=== PATIENT | female | born 1990 | race Caucasian/White ===

== ENCOUNTER 2017-12-06 12:40 | Inpatient (IN) | payer OTHER ==
[2017-12-06] MEDS ORDERED: LACTATED RINGER'S 1,000 ML IV (16:00)
[2017-12-06] MEDS: LACTATED RINGER'S 1,000 ML IV ×2 (16:10→20:03)
[2017-12-06] MEDS ORDERED: METHYLERGONOVINE 0.2 MG INJ IM (19:00)
[2017-12-06] MEDS ORDERED: CARBOPROST 250 MCG INJ IM (19:00)
[2017-12-06] MEDS ORDERED: LIDOCAINE 1% (MPF) 30 ML INJ INJ (19:00)
[2017-12-06] MEDS ORDERED: BUTORPHANOL 2 MG INJ IV ×2 (19:00)
[2017-12-06] MEDS: DINOPROSTONE 10 MG VAG SUPP VAG (19:00)
[2017-12-06] MEDS ORDERED: OXYTOCIN 30 UNITS/LR 500 ML IV (19:00)
[2017-12-06] MEDS ORDERED: MISOPROSTOL 200 MCG TAB PR (19:00)
[2017-12-06 20:19] LABS: ADD MAN DIFF? NO
[2017-12-06 20:23] LABS: WHITE BLOOD COUNT 10.1 10^3/ul (4.8-10.8)
[2017-12-06 20:23] LABS: BASOPHILS % 0.3 % (0.0-2.0); EOSINOPHILS % 0.3 % (0.0-7.0); HEMOGLOBIN 11.2 g/dl (12.0-16.0); LYMPHOCYTES # 2.3 10^3/ul (0.8-2.9); LYMPHOCYTES % 22.7 % (15.0-51.0); MEAN CORPUSCULAR HEMOGLOBIN 32.7 pg (29.0-33.0); MEAN CORPUSCULAR HGB CONC 33.9 g/dl (32.0-37.0); MEAN CORPUSCULAR VOLUME 96.5 fl (82.0-101.0); MEAN PLATELET VOLUME 11.7 fl (7.4-10.4); MONOCYTE # 0.4 10^3/ul (0.3-0.9); MONOCYTES % 3.9 % (0.0-11.0); NEUTROPHIL # 7.3 10^3/ul (1.6-7.5); NEUTROPHILS % 72.2 % (39.0-77.0); PLATELET COUNT 303 10^3/UL (140-415); RED BLOOD COUNT 3.42 10^6/ul (4.20-5.40); RED CELL DISTRIBUTION WIDTH 13.4 % (11.5-14.5)
[2017-12-06 20:42] LABS: INR 0.93; PARTIAL THROMBOPLASTIN TIME 30.2 Sec (25.0-35.0); PROTIME 12.5 Sec (11.9-14.9)
[2017-12-06] MEDS: AMPICILLIN 2 GM/NS (PMX) 100 ML IVPB (21:59)
[2017-12-06 22:09] LABS: RAPID PLASMA REAGIN NONREACTIVE (NR)
[2017-12-07] MEDS: AMPICILLIN 1 GM/NS (PMX) 50 ML IVPB ×6 (01:31→20:45)
[2017-12-07] MEDS: LACTATED RINGER'S 1,000 ML IV ×4 (05:21→20:50)
[2017-12-07 08:00] LABS: HEPATITIS B SURFACE ANTIGEN NEGATIVE (NEGATIVE)
[2017-12-07] MEDS ORDERED: OXYTOCIN 30 UNITS/LR 500 ML IV (11:00)
[2017-12-07] MEDS: OXYTOCIN 30 UNITS/LR 500 ML IV (11:40)
[2017-12-07] MEDS ORDERED: FENTAnyl 2MCG/ML-ROPIV 0.2% 100 ML (15:00)
[2017-12-07] MEDS ORDERED: NALOXONE (0.4 MG/ML) INJ IV (20:00)
[2017-12-07] MEDS: DIPHENHYDRAMINE 50 MG INJ IV (20:02)
[2017-12-07] MEDS: ONDANSETRON 4 MG INJ IV (20:04)
[2017-12-07] MEDS: FENTAnyl 2MCG/ML-ROPIV 0.2% 100 ML BAG EPI (20:50)
[2017-12-08] MEDS: LACTATED RINGER'S 1,000 ML IV* ×2 (01:19→16:56)
[2017-12-08] MEDS: OXYTOCIN 30 UNITS/LR 500 ML IV ×2 (01:19→01:21)
[2017-12-08] MEDS ORDERED: CARBOPROST 250 MCG INJ IM (01:30)
[2017-12-08] MEDS ORDERED: OXYTOCIN 30 UNITS/LR 500 ML IV (01:30)
[2017-12-08] MEDS ORDERED: MISOPROSTOL 200 MCG TAB PR (01:30)
[2017-12-08] MEDS ORDERED: METHYLERGONOVINE 0.2 MG INJ IM (01:30)
[2017-12-08] MEDS ORDERED: IBUPROFEN 600 MG TAB PO ×2 (02:30→06:00)
[2017-12-08] MEDS: IBUPROFEN 600 MG TAB PO ×4 (02:38→23:31)
[2017-12-08] MEDS: OXYCODONE/ASPIRIN (4.88/325) TAB PO ×2 (06:29→13:17)
[2017-12-08] MEDS: LANOLIN 7 GM TUBE TOP (15:40)
[2017-12-08] MEDS: BENZOCAINE 20% 56 ML SPRAY TOP (15:40)
[2017-12-09] MEDS: LACTATED RINGER'S 1,000 ML IV* ×2 (01:19→09:19)
[2017-12-09] MEDS: IBUPROFEN 600 MG TAB PO ×2 (05:37→11:49)
[2017-12-09 11:34] LABS: ADD MAN DIFF? NO
[2017-12-09 11:40] LABS: BASOPHILS % 0.2 % (0.0-2.0); EOSINOPHILS # 0.2 10^3/ul (0.0-0.5); EOSINOPHILS % 1.9 % (0.0-7.0); HEMATOCRIT 32.2 % (37.0-47.0); HEMOGLOBIN 10.9 g/dl (12.0-16.0); LYMPHOCYTES # 1.7 10^3/ul (0.8-2.9); LYMPHOCYTES % 18.5 % (15.0-51.0); MEAN CORPUSCULAR HEMOGLOBIN 32.4 pg (29.0-33.0); MEAN CORPUSCULAR HGB CONC 33.9 g/dl (32.0-37.0); MEAN CORPUSCULAR VOLUME 95.8 fl (82.0-101.0); MEAN PLATELET VOLUME 11.8 fl (7.4-10.4); MONOCYTE # 0.5 10^3/ul (0.3-0.9); MONOCYTES % 5.9 % (0.0-11.0); NEUTROPHIL # 6.6 10^3/ul (1.6-7.5); NEUTROPHILS % 72.9 % (39.0-77.0); PLATELET COUNT 295 10^3/UL (140-415); RED BLOOD COUNT 3.36 10^6/ul (4.20-5.40); RED CELL DISTRIBUTION WIDTH 13.2 % (11.5-14.5)
[2017-12-09] MEDS: DIPHTH/TET/ACEL PERTUSS (ADULT) 0.5 ML VIAL IM* (11:43)
[2017-12-10] MEDS ORDERED: DIPHTH/TET/ACEL PERTUSS (ADULT) 0.5 ML VIAL IM* (09:00)
[2017-12-10 12:33] LABS: RUBELLA ANTIBODY - IGG <0.90 index
== END 2017-12-09 18:30 | disposition home or self-care (01) | DRG 775 ==
LOC: OBT 12:40 → L-D 12-07 00:51 → PP1 12-08 14:54 → L-D 18:51 → OBT 19:00 → L-D 18:30
PROC: 10E0XZZ Delivery of Products of Conception, External Approach (ICD-10-PCS; principal; 2017-12-08)
PROC: 0UQGXZZ Repair Vagina, External Approach (ICD-10-PCS; 2017-12-08)
PROC: 3E033VJ Introduction of Other Hormone into Peripheral Vein, Percutaneous Approach (ICD-10-PCS; 2017-12-08)
DX: O71.4 Obstetric high vaginal laceration alone (principal); Z3A.37 37 weeks gestation of pregnancy; Z37.0 Single live birth
CPT/HCPCS: 36415; 62319; 76815; 76818; 85025; 85610; 85730; 86592; 86762; 86850; 86900; 86901; 87340; 90715; 96360; 96361; 99464

== ENCOUNTER 2018-05-18 17:56 | Emergency (ER) | payer OTHER ==
[2018-05-18] MEDS: ACETAMINOPHEN 325 MG TAB PO (18:52)
[2018-05-18 19:11] LABS: ADD MAN DIFF? NO
[2018-05-18 19:13] LABS: WHITE BLOOD COUNT 10.1 10^3/ul (4.8-10.8)
[2018-05-18 19:13] LABS: BASOPHILS % 0.3 % (0.0-2.0); EOSINOPHILS # 0.1 10^3/ul (0.0-0.5); EOSINOPHILS % 0.8 % (0.0-7.0); HEMATOCRIT 35.8 % (37.0-47.0); LYMPHOCYTES # 2.6 10^3/ul (0.8-2.9); LYMPHOCYTES % 25.7 % (15.0-51.0); MEAN CORPUSCULAR HGB CONC 33.5 g/dl (32.0-37.0); MEAN CORPUSCULAR VOLUME 95.5 fl (82.0-101.0); MEAN PLATELET VOLUME 11.4 fl (7.4-10.4); MONOCYTE # 0.6 10^3/ul (0.3-0.9); MONOCYTES % 5.7 % (0.0-11.0); NEUTROPHIL # 6.8 10^3/ul (1.6-7.5); NEUTROPHILS % 67.2 % (39.0-77.0); PLATELET COUNT 351 10^3/UL (140-415); RED BLOOD COUNT 3.75 10^6/ul (4.20-5.40); RED CELL DISTRIBUTION WIDTH 12.7 % (11.5-14.5)
[2018-05-18 19:39] LABS: ADD UMIC YES; UR ASCORBIC ACID 20 mg/dL (NEGATIVE); UR BACTERIA FEW /HPF (NONE SEEN); UR BILIRUBIN (Dip) NEGATIVE (NEGATIVE); UR BLOOD (Dip) NEGATIVE (NEGATIVE); UR CLARITY SLIGHTLY CLOUDY (CLEAR); UR COLOR YELLOW (YELLOW); UR GLUCOSE (Dip) NEGATIVE (NEGATIVE); UR KETONES (Dip) NEGATIVE (NEGATIVE); UR LEUKOCYTE ESTERASE (Dip) TRACE Leu/ul (NEGATIVE); UR MUCUS FEW /HPF (NONE SEEN); UR NITRITE (Dip) NEGATIVE (NEGATIVE); UR RBC 23 /HPF (0-5); UR SPECIFIC GRAVITY (Dip) 1.029 (1.003-1.030); UR SQUAMOUS EPITHELIAL CELL FEW /HPF (FEW); UR TOTAL PROTEIN (Dip) NEGATIVE (NEGATIVE); UR UROBILINOGEN (Dip) NEGATIVE (NEGATIVE); UR WBC 4 /HPF (0-5)
== END 2018-05-18 20:21 | disposition home or self-care (01) ==
LOC: FTE 17:56
DX: O26.891 Other specified pregnancy related conditions, first trimester (principal); R10.2 Pelvic and perineal pain; O99.511 Diseases of the respiratory system complicating pregnancy, first trimester; J45.909 Unspecified asthma, uncomplicated; Z3A.11 11 weeks gestation of pregnancy
CPT/HCPCS: 36415; 76801; 81001; 84702; 85025; 86900; 86901; 99284-25

== ENCOUNTER 2018-05-22 09:45 | Emergency (ER) | payer OTHER ==
[2018-05-22] MEDS: ACETAMINOPHEN 325 MG TAB PO (11:37)
== END 2018-05-22 11:35 | disposition left against medical advice (07) ==
LOC: FTE 09:45
DX: O99.89 Other specified diseases and conditions complicating pregnancy, childbirth and the puerperium (principal); M54.9 Dorsalgia, unspecified; O99.511 Diseases of the respiratory system complicating pregnancy, first trimester; J45.909 Unspecified asthma, uncomplicated; Z04.1 Encounter for examination and observation following transport accident; Z3A.11 11 weeks gestation of pregnancy
CPT/HCPCS: 76801; 99284-25

== ENCOUNTER 2018-11-17 17:45 | Outpatient (CLI) | payer OTHER ==
[2018-11-17] MEDS: LACTATED RINGER'S 1,000 ML IV (18:45)
[2018-11-17 18:57] LABS: ADD MAN DIFF? NO
[2018-11-17 19:00] LABS: WHITE BLOOD COUNT 11.7 10^3/ul (4.8-10.8)
[2018-11-17 19:00] LABS: BASOPHILS % 0.3 % (0.0-2.0); EOSINOPHILS # 0.1 10^3/ul (0.0-0.5); EOSINOPHILS % 0.5 % (0.0-7.0); HEMATOCRIT 34.6 % (37.0-47.0); HEMOGLOBIN 11.4 g/dl (12.0-16.0); LYMPHOCYTES # 2.3 10^3/ul (0.8-2.9); LYMPHOCYTES % 19.5 % (15.0-51.0); MEAN CORPUSCULAR HEMOGLOBIN 31.8 pg (29.0-33.0); MEAN CORPUSCULAR HGB CONC 32.9 g/dl (32.0-37.0); MEAN CORPUSCULAR VOLUME 96.6 fl (82.0-101.0); MONOCYTE # 0.9 10^3/ul (0.3-0.9); MONOCYTES % 7.5 % (0.0-11.0); NEUTROPHIL # 8.3 10^3/ul (1.6-7.5); NEUTROPHILS % 71.4 % (39.0-77.0); PLATELET COUNT 347 10^3/UL (140-415); RED BLOOD COUNT 3.58 10^6/ul (4.20-5.40); RED CELL DISTRIBUTION WIDTH 13.2 % (11.5-14.5)
== END 2018-11-17 21:36 | disposition home or self-care (01) ==
LOC: OBT 17:45 → L-D 17:46 → OBT 21:36
DX: O26.893 Other specified pregnancy related conditions, third trimester (principal); Z3A.36 36 weeks gestation of pregnancy; R10.2 Pelvic and perineal pain
CPT/HCPCS: 36415; 76818; 85025; 85460; 96360; 96361

== ENCOUNTER 2018-11-29 07:19 | Outpatient (CLI) | payer OTHER | END 2018-11-29 09:30 | disposition home or self-care (01) | LOC: OBT 07:19 → L-D 07:19 → OBT 09:30 | DX: O62.9 Abnormality of forces of labor, unspecified (principal); Z3A.38 38 weeks gestation of pregnancy | CPT/HCPCS: 76815; 76818 ==

== ENCOUNTER 2018-12-03 17:03 | Inpatient (IN) | payer OTHER ==
[2018-12-03] MEDS ORDERED: OXYTOCIN 30 UNITS/LR 500 ML IV ×2 (18:00)
[2018-12-03] MEDS ORDERED: METHYLERGONOVINE 0.2 MG INJ IM (18:00)
[2018-12-03] MEDS ORDERED: IBUPROFEN 600 MG TAB PO (18:00)
[2018-12-03] MEDS ORDERED: BUTORPHANOL 2 MG INJ IV (18:00)
[2018-12-03] MEDS ORDERED: LIDOCAINE 1% (MPF) 30 ML INJ INJ (18:00)
[2018-12-03] MEDS ORDERED: MISOPROSTOL 200 MCG TAB PR (18:00)
[2018-12-03] MEDS ORDERED: CARBOPROST 250 MCG INJ IM (18:00)
[2018-12-03 18:38] LABS: ADD MAN DIFF? NO
[2018-12-03 18:43] LABS: WHITE BLOOD COUNT 8.1 10^3/ul (4.8-10.8)
[2018-12-03 18:43] LABS: BASOPHILS % 0.5 % (0.0-2.0); EOSINOPHILS # 0.1 10^3/ul (0.0-0.5); HEMATOCRIT 32.9 % (37.0-47.0); HEMOGLOBIN 10.9 g/dl (12.0-16.0); LYMPHOCYTES # 2.4 10^3/ul (0.8-2.9); MEAN CORPUSCULAR HEMOGLOBIN 31.7 pg (29.0-33.0); MEAN CORPUSCULAR HGB CONC 33.1 g/dl (32.0-37.0); MEAN CORPUSCULAR VOLUME 95.6 fl (82.0-101.0); MONOCYTE # 0.5 10^3/ul (0.3-0.9); MONOCYTES % 6.5 % (0.0-11.0); NEUTROPHIL # 5.1 10^3/ul (1.6-7.5); NEUTROPHILS % 62.3 % (39.0-77.0); PLATELET COUNT 276 10^3/UL (140-415); RED BLOOD COUNT 3.44 10^6/ul (4.20-5.40); RED CELL DISTRIBUTION WIDTH 13.2 % (11.5-14.5)
[2018-12-03] MEDS: AMPICILLIN 2 GM/NS (PMX) 100 ML IV (18:51)
[2018-12-03] MEDS: LACTATED RINGER'S 1,000 ML IV ×2 (18:52→22:11)
[2018-12-03 19:02] LABS: INR 0.86; PROTIME 11.8 Sec (11.9-14.9); PT RATIO 0.9
[2018-12-03 19:03] LABS: PARTIAL THROMBOPLASTIN TIME 28.9 Sec (23.0-35.0)
[2018-12-03 19:42] LABS: HEPATITIS B SURFACE ANTIGEN NEGATIVE (NEGATIVE)
[2018-12-03] MEDS: OXYTOCIN 30 UNITS/LR 500 ML IV (21:06)
[2018-12-03] MEDS: AMPICILLIN 1 GM/NS (PMX) 50 ML IV (22:11)
[2018-12-03] MEDS ORDERED: FENTAnyl 2MCG/ML-ROPIV 0.2% 100 ML (22:15)
[2018-12-03] MEDS ORDERED: NALOXONE (0.4 MG/ML) INJ IV (22:30)
[2018-12-04] MEDS: ONDANSETRON 4 MG INJ IV (00:36)
[2018-12-04] MEDS: AMPICILLIN 1 GM/NS (PMX) 50 ML IV ×5 (02:02→18:00)
[2018-12-04] MEDS: LACTATED RINGER'S 1,000 ML IV ×2 (03:39→17:38)
[2018-12-04] MEDS: FENTAnyl 2MCG/ML-ROPIV 0.2% 100 ML BAG EPI (04:30)
[2018-12-04] MEDS ORDERED: MISOPROSTOL 200 MCG TAB PR (10:00)
[2018-12-04] MEDS ORDERED: BENZOCAINE 20% 56 ML SPRAY TOP (10:00)
[2018-12-04] MEDS ORDERED: OXYTOCIN 30 UNITS/LR 500 ML IV (10:00)
[2018-12-04] MEDS ORDERED: ACETAMINOPHEN 325 MG TAB PO ×2 (10:00→22:29)
[2018-12-04] MEDS ORDERED: CARBOPROST 250 MCG INJ IM (10:00)
[2018-12-04] MEDS ORDERED: METHYLERGONOVINE 0.2 MG INJ IM (10:00)
[2018-12-04] MEDS ORDERED: WITCH HAZEL/GLYCERIN PAD PR (10:00)
[2018-12-04] MEDS ORDERED: MAGNESIUM HYDROXIDE 30ML CUP PO (10:00)
[2018-12-04] MEDS ORDERED: DIBUCAINE 1% 30 GM OINT TOP (10:00)
[2018-12-04] MEDS ORDERED: ONDANSETRON 4 MG INJ IV (10:00)
[2018-12-04] MEDS: OXYTOCIN 30 UNITS/LR 500 ML IV ×2 (10:04→16:13)
[2018-12-04] MEDS: DIPHENHYDRAMINE 50 MG INJ IV (11:40)
[2018-12-04] MEDS: LACTATED RINGER'S 1,000 ML IV* ×2 (16:08→17:41)
[2018-12-04] MEDS: LANOLIN HPA 1 PKT TOP (16:41)
[2018-12-04] MEDS: IBUPROFEN 600 MG TAB PO (16:42)
[2018-12-04 21:49] LABS: RAPID PLASMA REAGIN NONREACTIVE (NR)
[2018-12-05] MEDS: IBUPROFEN 600 MG TAB PO ×3 (03:05→20:27)
[2018-12-05 08:51] LABS: ADD MAN DIFF? NO
[2018-12-05 08:54] LABS: WHITE BLOOD COUNT 7.2 10^3/ul (4.8-10.8)
[2018-12-05 08:54] LABS: BASOPHILS % 0.4 % (0.0-2.0); EOSINOPHILS # 0.2 10^3/ul (0.0-0.5); HEMATOCRIT 31.3 % (37.0-47.0); HEMOGLOBIN 10.3 g/dl (12.0-16.0); LYMPHOCYTES # 2.3 10^3/ul (0.8-2.9); LYMPHOCYTES % 32.1 % (15.0-51.0); MEAN CORPUSCULAR HEMOGLOBIN 31.7 pg (29.0-33.0); MEAN CORPUSCULAR HGB CONC 32.9 g/dl (32.0-37.0); MEAN CORPUSCULAR VOLUME 96.3 fl (82.0-101.0); MEAN PLATELET VOLUME 11.8 fl (7.4-10.4); MONOCYTE # 0.4 10^3/ul (0.3-0.9); MONOCYTES % 5.3 % (0.0-11.0); NEUTROPHIL # 4.2 10^3/ul (1.6-7.5); NEUTROPHILS % 58.5 % (39.0-77.0); PLATELET COUNT 233 10^3/UL (140-415); RED BLOOD COUNT 3.25 10^6/ul (4.20-5.40); RED CELL DISTRIBUTION WIDTH 13.3 % (11.5-14.5)
[2018-12-05] MEDS: SENNA/DOCUSATE NA (8.6MG/50MG) TAB PO (20:27)
[2018-12-06] MEDS: IBUPROFEN 600 MG TAB PO (05:34)
== END 2018-12-06 13:05 | disposition home or self-care (01) | DRG 807 ==
LOC: L-D 17:03 → PP1 12-04 15:55
PROVIDERS: Obstetrics & Gynecology
PROC: 10E0XZZ Delivery of Products of Conception, External Approach (ICD-10-PCS; principal; 2018-12-04)
DX: O99.824 Streptococcus B carrier state complicating childbirth (principal); O99.214 Obesity complicating childbirth; E66.9 Obesity, unspecified; Z37.0 Single live birth; Z3A.39 39 weeks gestation of pregnancy
CPT/HCPCS: 85025; 85610; 85730; 86592; 86850; 86900; 86901; 87340